=== PATIENT | female | born 1955 | race Caucasian/White ===

== ENCOUNTER → 2021-04-18 | Outpatient (CLI) | payer MEDICARE ==
--- NOTE | 2021-04-18 08:45 | RAD ---
EXAMINATION: US ABDOMEN LIMITED INDICATION: 65 years, Female, nausea and vomiting. COMPARISON: None TECHNIQUE: Grayscale, color Doppler and limited spectral Doppler images of the right upper quadrant w ere obtained. FINDINGS: LIVER: SIZE (LENGTH): 15.6 cm. ECHOGENICITY: Increased PARENCHYMA: Mild heterogeneous echotexture. No discrete focal lesion. INTRAHEPATIC BILE DUCTS: Nondilated. PORTAL VEIN: Patent with normal hepatopedal flow. GALLBLADDER: GALLBLADDER WALL THICKNESS: 1.5 mm MORPHOLOGY: Normal morphology. No wall hyperemia or pericholecystic free fluid. LUMEN: Normal. COMMON BILE DUCT DIAMETER: 4 mm RIGHT KIDNEY: MEASURES: 9.7 cm in length. MORPHOLOGY/PARENCHYMA: Normal corticomedullary differentiation with no shadowing calculus or discrete masses. COLLECTING SYSTEM: No hydronephrosis. PANCREAS: VISUALIZED PORTIONS: Head and body APPEARANCE: Within normal limits. OTHER: RETROPERITONEUM, INFERIOR VENA CAVA: Normal caliber. AORTA: Not visualized. FLUID:No free fluid. IMPRESSION: 1. No acute sonographic findings in the right upper abdomen. 2. Moderate diffuse hepatic steatosis. Electronically signed by: Michelle Alan MD (04/18/2021 8:43 AM) [id number]
== END ==
LOC: US 08:03
PROVIDERS: ATTEND Family Medicine
DX: K76.0 Fatty (change of) liver, not elsewhere classified (principal); R10.9 Unspecified abdominal pain; R11.10 Vomiting, unspecified
CPT/HCPCS: 76705

== ENCOUNTER → 2021-05-03 | Outpatient (CLI) | payer OTHER ==
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
== END ==
LOC: RAD 13:29
PROVIDERS: ATTEND Nurse Practitioner Family
DX: M47.816 Spondylosis without myelopathy or radiculopathy, lumbar region (principal); M48.07 Spinal stenosis, lumbosacral region; M43.17 Spondylolisthesis, lumbosacral region; M51.27 Other intervertebral disc displacement, lumbosacral region; M41.85 Other forms of scoliosis, thoracolumbar region; M47.812 Spondylosis without myelopathy or radiculopathy, cervical region; M43.12 Spondylolisthesis, cervical region; J43.9 Emphysema, unspecified; J98.4 Other disorders of lung; K44.9 Diaphragmatic hernia without obstruction or gangrene; V87.7XXA Person injured in collision between other specified motor vehicles (traffic), initial encounter; Y93.89 Activity, other specified; Y92.89 Other specified places as the place of occurrence of the external cause; Y99.8 Other external cause status
CPT/HCPCS: 72128; 72131

== ENCOUNTER → 2021-05-17 | Outpatient (CLI) | payer MEDICARE ==
--- NOTE | 2021-05-17 15:46 | RAD ---
EXAM: Dual energy x-ray absorptiometry (DEXA). HISTORY: Postmenopausal. COMPARISON: 02/09/2014. TECHNIQUE: Dual energy x-ray absorptiometry of the lumbar spine and right hip was performed. Calcula tion of bone mineral density based on standard deviations above or below the expected young adult nor mal value (T-score) was completed. FINDINGS: LUMBAR SPINE: The AVG BMD OF the L1-L4 region = 1.028 gm/cm2, T-score = -1.3, Z-score = 0.4. Findings are consistent with osteopenia. Femoral Necks: The BMD of the right total femur = 0.748 gm/cm2, T-score = -2.1, Z-score = -0.7. The Findings are consistent with osteopenia. Comparison to the previous DEXA study: Lumbar Spine: Compared to the previous BMD value of 0.938 today's value is not significantly changed. Right femoral neck was not previously assessed. IMPRESSION: Osteopenia of the lumbar spine and right femoral neck Electronically signed by: Yakov Katz MD (05/17/2021 3:44 PM) [id number]
== END ==
LOC: DXRAD 12:09
PROVIDERS: ATTEND Family Medicine
DX: M85.88 Other specified disorders of bone density and structure, other site (principal); M81.0 Age-related osteoporosis without current pathological fracture
CPT/HCPCS: 77080

== ENCOUNTER → 2021-10-13 | Outpatient (CLI) | payer MEDICARE ==
--- NOTE | 2021-10-13 17:28 | RAD ---
History: Low back pain. Comparison: CT from 05/03/2021 and lumbar spine radiograph from 04/17/2016 Technique: Three views of the lumbar spine. Findings: Vertebral body height and alignment are normal. No acute fracture. Similar lumbar scoliosis and hyperlordosis. Similar 2 mm of anterolisthesis of L4 on L5 and L5 on S1. There is intervertebral disc space narrowing at the T12-L1 level, similar from priors. Multilevel endplate remodeling with m arginal/small anterior osteophytes most pronounced at the T12-L1 level. Mild to moderate multilevel f acet arthrosis most pronounced at the L4-L5 and L5-S1 levels. Moderate to severe degenerative changes of bilateral SI joints. Impression: 1. No evidence of acute osseous abnormality of the lumbar spine. 2. Similar degenerative changes of the lumbar spine as well as bilateral SI joints Electronically signed by: Huan Griggs DO (10/13/2021 5:26 PM) [facility]
== END ==
LOC: RAD 16:48
DX: M47.817 Spondylosis without myelopathy or radiculopathy, lumbosacral region (principal); M41.87 Other forms of scoliosis, lumbosacral region; M48.05 Spinal stenosis, thoracolumbar region; M53.3 Sacrococcygeal disorders, not elsewhere classified; M25.78 Osteophyte, vertebrae; M25.561 Pain in right knee
CPT/HCPCS: 72100